=== PATIENT | male | born 1970 | race Caucasian/White ===

== ENCOUNTER 2017-05-19 22:13 | Emergency (ER) | payer OTHER ==
[~2017-05-19] VITALS: Ht 162.6 cm; Wt 74.4 kg
[2017-05-19] MEDS ORDERED: NORCO 5-325 TA1 EAC1 PO (22:53)
[2017-05-19 23:01] VITALS: BP 134/79
== END 2017-05-19 23:08 | disposition home or self-care (01) ==
LOC: M.ERS 22:13
DX: S92.352A Displaced fracture of fifth metatarsal bone, left foot, initial encounter for closed fracture (principal); W18.09XA Striking against other object with subsequent fall, initial encounter; Y93.89 Activity, other specified; Y99.8 Other external cause status; Y92.89 Other specified places as the place of occurrence of the external cause